=== PATIENT | male | born 1965 | race Caucasian/White ===

== ENCOUNTER 2018-02-11 23:55 | Observation (INO) | payer OTHER ==
[~2018-02-11] VITALS: Ht 190.5 cm; Wt 129.3 kg
[2018-02-12] MEDS ORDERED: PANTOPRAZOLE 40 MG 10ML VIAL IV STA (00:42)
[2018-02-12] MEDS ORDERED: SODIUM CHLORIDE 0.9% 1000ML 1,000 ML IV STA (00:42)
[2018-02-12] MEDS ORDERED: GLUCAGON FOR INJ 1 MG VIAL IV ONE ×2 (00:45→01:45)
[2018-02-12] MEDS ORDERED: LORAZEPAM INJ 2 MG/ML VIAL IV ONE (00:45)
[2018-02-12 01:33] LABS: BASOPHILS % 0.4 % (0.0-1.0); EOSINOPHILS % 0.5 % (0.0-6.0); HEMATOCRIT 42.8 % (38.2-49.6); HEMOGLOBIN 14.6 g/dL (14.0-18.0); LYMPHOCYTES # (AUTO) 1.7 (1.0-3.2); LYMPHOCYTES % 22.3 % (18.0-39.1); MEAN CORPUSCULAR HEMOGLOBIN 30.4 pg (28-32); MEAN CORPUSCULAR HGB CONC 34.1 g/dL (31-35); MONOCYTES # (AUTO) 0.4 (0.2-0.8); MONOCYTES % 5.7 % (4.4-11.3); NEUTROPHILS # (AUTO) 5.5 (2.1-6.9); NEUTROPHILS % 70.7 % (38.7-80.0); PLATELET COUNT 264 x10e3/uL (140-360); RED BLOOD COUNT 4.81 x10e6/uL (4.3-5.7)
[2018-02-12] MEDS ORDERED: GLUCAGON FOR INJ 1 MG VIAL ONE (01:37)
[2018-02-12 01:40] LABS: INR 1.03; PARTIAL THROMBOPLASTIN TIME 30.3 seconds (23.8-35.5); PROTHROMBIN TIME 12.7 seconds (11.9-14.5)
[2018-02-12 01:47] LABS: ALANINE AMINOTRANSFERASE 41 IU/L (0-55); ALBUMIN 4.4 g/dL (3.5-5.0); ALBUMIN/GLOBULIN RATIO 1.2 (0.8-2.0); ALKALINE PHOSPHATASE 61 IU/L (40-150); ANION GAP 17.6 mmol/L (8-16); BLOOD UREA NITROGEN 16 mg/dL (7-26); BUN/CREATININE RATIO 15 (6-25); CALCIUM 9.8 mg/dL (8.4-10.2); CARBON DIOXIDE 25 mmol/L (22-29); CHLORIDE 103 mmol/L (98-107); CREATINE KINASE 229 IU/L (30-200); CREATININE, SERUM 1.04 mg/dL (0.72-1.25); EST GLOMERULAR FILTRATION RATE > 60 ML/MIN (60-); GLUCOSE 91 mg/dL (74-118); MAGNESIUM 2.5 MG/DL (1.3-2.1); POTASSIUM 4.6 mmol/L (3.5-5.1); SODIUM 141 mmol/L (136-145)
[2018-02-12] MEDS ORDERED: METOCLOPRAMIDE HCL 10 MG/2ML VIAL ONE (02:20)
[2018-02-12] MEDS ORDERED: METOCLOPRAMIDE HCL 10 MG/2ML VIAL IV SCH ×2 (02:30→06:00)
[2018-02-12] MEDS ORDERED: SODIUM CHLORIDE 0.9% 1000ML 1,000 ML IV SCH (02:30)
[2018-02-12] MEDS ORDERED: CRESTOR10 MG PO (02:58)
[2018-02-12] MEDS ORDERED: LISINOPRIL10 MG PO (02:58)
[2018-02-12] MEDS ORDERED: MORPHINE SULFATE 2 MG/ML SYR IV PRN (03:15)
--- NOTE | 2018-02-12 03:19 | Diagnostic Imaging Report ---
EXAM: CHEST SINGLE (PORTABLE), AP 1 view INDICATION: Chest pain COMPARISON: None FINDINGS: LINES/TUBES: None LUNGS: No consolidations or edema. PLEURA: No effusions or pneumothorax. HEART AND MEDIASTINUM: Normal size and contour. BONES AND SOFT TISSUES: No acute findings. IMPRESSION: No acute thoracic abnormality. Signed by: Dr. Tish Espino M.D. on 02/12/2018 3:15 AM
[2018-02-12 03:30] VITALS: BP_SYST 110; BP_SYST 167; BP_DIAS 59; BP_DIAS 96
[2018-02-12 04:34] VITALS: BP 167/96
[2018-02-12 06:32] VITALS: BP 167/96
[2018-02-12 07:23] VITALS: BP 166/97
[2018-02-12 09:21] LABS: CREATINE KINASE 160 IU/L (30-200)
[2018-02-12] MEDS ORDERED: PANTOPRAZOLE 40 MG 10ML VIAL ONE (10:20)
--- NOTE | 2018-02-12 10:27 | Operative Report ---
DATE OF PROCEDURE: February 12, 2018 REFERRING PHYSICIAN: Dr. Gonzalo Alanis PROCEDURE PERFORMED: Esophagogastroduodenoscopy with biopsies and polypectomy. INDICATIONS FOR EGD: Foreign body in esophagus. MEDICATION: Patient was done under MAC. Please see anesthesiologist's note. PROCEDURE: With the patient in the left lateral decubitus position, the flexible fiberoptic Olympus gastroscope was introduced into the esophagus under direct visualization without any difficulty. There was some patchy erythema noted in the distal esophagus. The GE junction was ulcerated. It was traversed with ease with the scope, which was advanced into the stomach. Mucosa overlying the antrum and the body revealed some patchy erythema and moderate edema, and biopsies were obtained and sent to stain for H. pylori. Some hyperplastic appearing polyps were noted in the body of the stomach and some were partially excised with cold biopsy forceps. The pylorus was of normal contour and shape. It was intubated with ease. The scope was advanced all the way to the 2nd portion of the duodenum. The scope was then withdrawn slowly. Mucosa overlying the proximal 2nd portion and the duodenal bulb appeared to be within normal limits. The scope was then withdrawn back into the stomach and retroflexed. The mucosa overlying the fundus and the cardia appeared to be within normal limits. The scope was then was straightened. It was subsequently withdrawn. The ulcerated stricture at the GE junction was then dilated to size 52-[employer]ic Sales. Patient tolerated the procedure well. IMPRESSION 1. Distal esophagitis. 2. Ulcerated esophageal stricture at gastroesophageal junction dilated to size 52-Arabic Sales. 3. Gastritis biopsied. Biopsies sent to stain for Helicobacter pylori. 4. Gastric polyps, minute, hyperplastic appearing. Some partially excised with the cold biopsy forceps. PLAN: Follow up histology. Initiate Protonix 40 mg 1 p.o. q.a.m. a.c. Job#: [id number] RI cc:GONZALO ALANIS MD
[2018-02-12] MEDS ORDERED: PANTOPRAZOLE 40 MG 10ML VIAL IV NR ×2 (10:30→10:45)
[2018-02-12 11:07] VITALS: BP 118/75
[2018-02-12] MEDS ORDERED: PANTOPRAZOLE SO40 MG PO (11:08)
--- NOTE | 2018-02-12 11:53 | History and Physical ---
Mr. Flores is a pleasant, 52-year-old man who presented to the emergency room the evening of the with a complaint of "steak stuck in my throat." HISTORY OF PRESENT ILLNESS: The patient reports he was eating dinner and may have not been carefully chewing his food and found that steak became lodged in his esophagus. He felt he could not swallow further and could not regurgitate it, so he came to the emergency room. PAST MEDICAL HISTORY: Relatively insignificant. He does have hypertension and hyperlipidemia for which he takes Crestor and Zestril 10 mg each. He has had remote umbilical hernia repair. FAMILY HISTORY: Parents and siblings are alive and well. PERSONAL AND SOCIAL HISTORY: He does not smoke. He occasionally drinks some alcohol. REVIEW OF SYSTEMS GENERAL: The patient reports he has lost about 18 pounds in the last year intentionally. GASTROINTESTINAL: Patient reports he has hemorrhoids and occasionally sees some blood in the stool. He had a previous colonoscopy about 5 years ago which was unremarkable. CARDIAC: Negative. PHYSICAL EXAMINATION GENERAL: Exam at this time shows a large, obese man. He is alert and comfortable. VITAL SIGNS: Blood pressure 160/90. HEENT: Unremarkable. NECK: Thick. THORAX: Heart sounds S1, S2 are equal. No murmurs. Lungs are clear. ABDOMEN: Protuberant. EXTREMITIES: No cyanosis, clubbing or edema. EKG is unremarkable. Troponins are negative. ASSESSMENT 1. Esophageal obstruction by history. 2. History of hypertension. 3. History of hyperlipidemia. PLAN: The patient is on IV fluids and IV Protonix. Will get EGD with possible removal of foreign body, and further management based on clinical course. Job#: [id number] cc:Breezy FRIAS MD
--- NOTE | 2018-02-12 12:50 | Discharge Summary ---
HISTORY OF PRESENT ILLNESS: Mr. Flores is a pleasant 52-year-old man with hypertension and hyperlipidemia, who presented to the emergency room with a complaint of "steak caught in my throat." HOSPITAL COURSE: The patient was monitored, given IV fluids and IV Protonix, and on the morning of the he was taken to the endoscopy suite by Dr. Arzola, who found no leftover obstructing mass but did find some esophageal stricture at the gastroesophageal junction. He also found small gastric polyps, which were biopsied. The esophagus was dilated. The patient is now alert and responsive and comfortable and is discharged home to add Protonix 40 mg daily to his other medicines and advised to chew his food carefully and to follow up as an outpatient with Dr. Arzola. DISCHARGE DIAGNOSES: 1. Esophageal obstruction. 2. Esophageal stricture. 3. Gastric polyps. 4. Successful dilatation of the esophagus. TYRONE EDMONDSON MD Job#: [id number] EV cc:MD KENJI FRIAS MD
[2018-02-12] MEDS ORDERED: PROPOFOL IV EMULSION 10 MG/ML 50 ML VIAL ONE (17:58)
[2018-02-12] MEDS ORDERED: FENTANYL CITRATE/PF 100MCG/2 ML INJ ONE (18:26)
[2018-02-12] MEDS ORDERED: MIDAZOLAM HCL 2 MG/2 ML VIAL ONE (18:26)
[2018-02-12] MEDS ORDERED: PANTOPRAZOLE 40 MG 10ML VIAL IV SCH (21:00)
== END 2018-02-12 13:00 | disposition home or self-care (01) ==
LOC: ER 23:55 → IMCU 02-12 03:15
PROVIDERS: ADMIT Internal Medicine Cardiovascular Disease; ATTEND Internal Medicine Cardiovascular Disease
DX: K22.2 Esophageal obstruction (principal); K29.70 Gastritis, unspecified, without bleeding; K20.9 Esophagitis, unspecified; E78.5 Hyperlipidemia, unspecified; I10 Essential (primary) hypertension; K31.7 Polyp of stomach and duodenum; K22.10 Ulcer of esophagus without bleeding
CPT/HCPCS: 36415; 43239; 71045; 80053; 82550; 82553; 83735; 84484; 85025; 85610; 85730; 88305; 88312; 93005; 99284; G0378; J1610; J2060; J2250; J2270; J2765; J7030; 43450